=== PATIENT | female | born 1985 | race African-American/Black ===

== ENCOUNTER 2020-09-10 08:30 | Emergency (ER) | payer OTHER, MEDICAID ==
[~2020-09-10] VITALS: Ht 170.2 cm; Wt 77.0 kg
[2020-09-10] MEDS ORDERED: ACETAMINOPHEN 325MG TABLET PO ONE (09:15)
[2020-09-10 09:28] VITALS: BP 130/77
== END 2020-09-10 09:27 | disposition home or self-care (01) ==
LOC: ER 08:41
DX: S06.0X9A Concussion with loss of consciousness of unspecified duration, initial encounter (principal); S13.4XXA Sprain of ligaments of cervical spine, initial encounter; I49.9 Cardiac arrhythmia, unspecified; Z13.9 Encounter for screening, unspecified; V49.9XXA Car occupant (driver) (passenger) injured in unspecified traffic accident, initial encounter; Y93.89 Activity, other specified; Y92.89 Other specified places as the place of occurrence of the external cause; Y99.8 Other external cause status
CPT/HCPCS: 81025; 93005; 99283